=== PATIENT | male | born 1950 | race Caucasian/White ===

== ENCOUNTER → 2019-01-18 | Outpatient (REF) | payer SELFPAY | LOC: M LAB LCGH 13:48 | PROVIDERS: ATTEND Physician Assistant | DX: L82.1 Other seborrheic keratosis (principal) ==

== ENCOUNTER → 2021-07-24 | Outpatient (REF) | payer MEDICARE, OTHER | LOC: M LAB REF 17:20 | PROVIDERS: ATTEND Physician Assistant | DX: L81.4 Other melanin hyperpigmentation (principal) ==

== ENCOUNTER → 2022-01-29 | Outpatient (REF) | payer MEDICARE, OTHER | LOC: M SFHCDERM 14:04 | PROVIDERS: ATTEND Physician Assistant | DX: B07.9 Viral wart, unspecified (principal) ==

== ENCOUNTER → 2023-06-10 | Outpatient (REF) | payer MEDICARE, OTHER | LOC: M SFHCDERM 17:33 | PROVIDERS: ATTEND Physician Assistant | DX: L98.6 Other infiltrative disorders of the skin and subcutaneous tissue (principal); D72.10 Eosinophilia, unspecified; L57.8 Other skin changes due to chronic exposure to nonionizing radiation ==

== ENCOUNTER → 2023-09-29 | Outpatient (REF) | payer MEDICARE, OTHER | LOC: M SFHCDERM 13:29 | PROVIDERS: ATTEND Dermatology | DX: R21 Rash and other nonspecific skin eruption (principal) ==

== ENCOUNTER → 2023-10-20 | Outpatient (REF) | payer MEDICARE, OTHER | LOC: M SFHCDERM 14:00 | PROVIDERS: ATTEND Dermatology | DX: R21 Rash and other nonspecific skin eruption (principal) ==